=== PATIENT | female | born 1975 | race Caucasian/White ===

== ENCOUNTER 2022-06-30 07:15 | Emergency (ER) | payer OTHER ==
[2022-06-30] MEDS ORDERED: Boostrix 0.5 ML (Tdap) VIAL (>/=7 yrs of age) ONE (07:49)
[2022-06-30] MEDS ORDERED: Lidocaine 4% Cream 5 GM TUBE w/ Tegaderm ONE (07:49)
== END 2022-06-30 08:32 | disposition home or self-care (01) ==
LOC: BURERS 07:15
DX: S80.12XA Contusion of left lower leg, initial encounter (principal); I10 Essential (primary) hypertension; V09.20XA Pedestrian injured in traffic accident involving unspecified motor vehicles, initial encounter
CPT/HCPCS: 90471; 90715

== ENCOUNTER 2023-04-20 08:27 | Outpatient (CLI) | payer OTHER | END 2023-04-20 08:28 | disposition home or self-care (01) | LOC: BURRAD 08:27 | PROVIDERS: ATTEND Nurse Practitioner Family | DX: M54.41 Lumbago with sciatica, right side (principal); M47.816 Spondylosis without myelopathy or radiculopathy, lumbar region | CPT/HCPCS: 72110 ==

== ENCOUNTER 2024-12-11 12:44 | Emergency (ER) | payer OTHER ==
[2024-12-11] MEDS ORDERED: Aspirin Chewable 81 MG TAB ONE (12:50)
[2024-12-11] MEDS ORDERED: Mag-Al 1200 mg/1200 mg/30 ML UDCUP ONE (12:51)
[2024-12-11] MEDS ORDERED: Lidocaine Viscous Sol 2% 15 ml UD Cup ONE (12:51)
[2024-12-11 13:08] LABS: #Basophils 0.1 thou/uL (0.0-0.2); #Eosinophils 0.1 thou/uL (0.0-0.7); #Lymphocytes 1.4 thou/uL (1.20-3.40); #Monocytes 0.3 thou/uL (0.11-0.59); #Neutrophils 5.1 thou/uL (1.40-6.50); %Basophils 1.1 % (0.0-1.0); %Eosinophils 1.3 % (0.0-10.0); %Lymphocytes 20.3 % (21.0-51.0); %Monocytes 3.8 % (0.0-10.0); %Neutrophils 73.4 % (42.0-75.0); Hematocrit 41.1 % (36.0-47.0); Hemoglobin 14.2 g/dL (12.0-16.0); Mean Corpuscular HGB CONC 34.6 g/dL (32.0-36.0); Mean Corpuscular Hemoglobin 34.3 pg (27.0-31.0); Mean Platelet Volume 9.7 fL (7.4-10.4); Platelet Count 168 10x3/uL (130-400); RBC Distribution Width 13.2 % (11.5-14.5); Red Blood Cell (RBC) Count 4.15 mill/uL (4.20-5.40); White Blood Cell (WBC) Count 6.9 10x3/uL (4.8-10.8)
[2024-12-11 13:13] LABS: BHCG - Serum Negative (NEGATIVE); Pregs Control Background? CLEAR/WHITE (CLR/WHITE); Pregs Control Bar Appear? YES (CONTROL BAR)
[2024-12-11 13:17] LABS: ALT (SGPT) 117 U/L (Less than 34); AST (SGOT) 142 U/L (11-34); Albumin 4.2 g/dL (3.1-4.5); Alkaline Phosphatase 59 U/L (40-110); Anion Gap 17 mmol/L (10-20); BUN (Urea Nitrogen) 6 mg/dL (7.0-18.7); Bilirubin, Total 0.5 mg/dL (0.3-1.2); Calc. Creatinine Clearance 0 mL/min (70-130); Calcium 9.1 mg/dL (7.8-10.44); Carbon Dioxide 22 mmol/L (22-29); Chloride 103 mmol/L (98-107); Estimated GFR 96; Globulin 3.2 g/dL (2.4-3.5); Glucose 229 mg/dL (70-105); Potassium 3.3 mmol/L (3.5-5.1); Protein, Total 7.4 g/dL (6.0-8.3); Sodium 139 mmol/L (136-145)
[2024-12-11 13:19] LABS: Platelet Adequacy Comment Appears Adequate; Troponin I Less than 0.010 ng/mL (< 0.028)
[2024-12-11 13:26] LABS: MDiff Complete? YES
[2024-12-11 15:02] LABS: Troponin I Less than 0.010 ng/mL (< 0.028)
== END 2024-12-11 15:12 | disposition home or self-care (01) ==
LOC: BURERS 12:44
DX: R07.9 Chest pain, unspecified (principal); E78.5 Hyperlipidemia, unspecified; I10 Essential (primary) hypertension; F17.210 Nicotine dependence, cigarettes, uncomplicated; Z79.899 Other long term (current) drug therapy
CPT/HCPCS: 71045; 80053; 83880; 84484; 84703; 85025; 85379; 93005; 94760

== ENCOUNTER 2025-08-17 23:11 | Emergency (ER) | payer OTHER ==
[2025-08-17] MEDS ORDERED: Ketorolac Tromethamine 30 MG (1 mL) VIAL ONE (23:25)
[2025-08-17] MEDS ORDERED: cefTRIAXone (ROCEPHIN) 1 GM VIAL ONE (23:25)
== END 2025-08-18 00:22 | disposition home or self-care (01) ==
LOC: BURERS 23:11
DX: K08.89 Other specified disorders of teeth and supporting structures (principal); K04.7 Periapical abscess without sinus; E78.00 Pure hypercholesterolemia, unspecified; I10 Essential (primary) hypertension; F17.210 Nicotine dependence, cigarettes, uncomplicated; Z79.899 Other long term (current) drug therapy
CPT/HCPCS: 96374; J0696; J1885

== ENCOUNTER 2025-09-10 23:46 | Emergency (ER) | payer OTHER | END 2025-09-11 01:05 | disposition home or self-care (01) | LOC: BURERS 23:46 | DX: K04.7 Periapical abscess without sinus (principal); K08.89 Other specified disorders of teeth and supporting structures; I10 Essential (primary) hypertension; E78.5 Hyperlipidemia, unspecified; F17.210 Nicotine dependence, cigarettes, uncomplicated; Z79.899 Other long term (current) drug therapy | CPT/HCPCS: 99282; J3490 ==